=== PATIENT | male | born 1995 | race Caucasian/White ===

== ENCOUNTER 2020-11-22 12:43 | Emergency (ER) | payer OTHER, SELFPAY ==
[2020-11-22 12:50] VITALS: BP 117/59; PULSE 68; RESP 16; TEMP 37; O2SAT 97
--- NOTE | 2020-11-22 13:38 | ED.DENTAL ---
HPI - Dental/Oral General Chief complaint: Dental/Oral Stated complaint: Dental pain Time Seen by Provider: 11/22/20 13:32 Source: patient and RN notes reviewed Mode of arrival: ambulatory Limitations: no limitations History of Present Illness HPI Narrative: Patient presents today complaining of a 3-day history of left lower posterior tooth pain and possible abscess. States the tooth has been broken off for about a year. Does not have a dentist. Denies fever, nausea, vomiting, shortness of breath or difficulty swallowing. He has been taking ibuprofen without relief and currently rates pain 11/07. MD Complaint: tooth pain Related Data Allergies Allergy/AdvReac Type Severity Reaction Status Date / Time No Known Allergies Allergy Verified 11/22/20 13:12 Review of Systems Review of Systems: CONSTITUTIONAL: Denies body aches, fever, chills, or sweats. EYES: Denies visual changes, redness, or discharge. ENT: Denies rhinorrhea, congestion, sore throat, or otalgia.+ Tooth pain CARDIOVASCULAR: Denies chest pain, palpitations, or edema. RESPIRATORY: Denies cough or dyspnea. GASTROINTESTINAL: Denies abdominal pain, nausea, vomiting, or diarrhea. GENITOURINARY: Denies dysuria or hematuria. SKIN: Denies rash, itching, or wounds. MUSCULOSKELETAL: Denies back pain, joint pain, or myalgia. NEUROLOGIC: Denies headache, numbness, tingling, or weakness. PSYCH: Denies depression or anxiety. PMFSH Comments At time of signature, I have reviewed and agree with nursing past medical, surgical, social and family history unless otherwise noted. Please see nursing chart for further information. There is no relevant family history pertinent to the presenting complaint Exam Narrative: GENERAL: Well-appearing, well-nourished, and in no acute distress. HEAD: Normocephalic, atraumatic. EYES: EOMI. No redness or drainage. Conjunctivae normal. ENT: Mucous membranes pink and moist. Throat normal. Uvula midline. tooth #19 is brown in color and broken off at the gumline. Tooth #17 is also broken off at the gumline. NECK: Normal AROM. CHEST: No respiratory distress. EXTREMITIES: Normal range of motion. No edema. SKIN: Warm, dry, no rash. Capillary refill normal. Normal skin turgor. NEURO: No focal deficits. Alert and oriented x3. Gait steady. PSYCH: Normal affect. No signs of depression or anxiety. Course Vital Signs Vital signs: Vital Signs Temperature 98.6 F 11/22/20 12:50 Pulse Rate 68 11/22/20 12:50 Respiratory Rate 16 11/22/20 12:50 Blood Pressure 117/59 L 11/22/20 12:50 Pulse Oximetry 97 11/22/20 12:50 Temperature 98.6 F 11/22/20 12:50 Pulse Rate 68 11/22/20 12:50 Respiratory Rate 16 11/22/20 12:50 Blood Pressure 117/59 L 11/22/20 12:50 Pulse Oximetry 97 11/22/20 12:50 Reviewed MDM - Dental/Oral Differential Diagnosis Differential diagnosis: Likely gingival abscess, dental caries, toothache, dental abscess and fracture of tooth Critical Care Time Critical Care Time Critical Care Time: No Discharge Plan Discharge Clinical Impression: Dental abscess Patient Disposition: Home, Self-Care Condition: Stable Instructions: Antibiotic Form, Dental Abscess (ED) Additional Instructions: Take the amoxicillin as prescribed until gone. Continue ibuprofen for pain and inflammation. Call make an appointment with a dentist for further evaluation and treatment. Patient Language: Micronesian Prescriptions: New amoxicillin 875 mg tablet 875 mg PO Q12H 10 Days Qty: 20 RF: 0 Follow-up/Referrals: PHYSICIAN,TELETYPESETTER OPERATOR [Primary Care Provider] - Time of Disposition: 13:39
== END 2020-11-22 13:40 | disposition home or self-care (01) ==
PROVIDERS: Emergency Provider Nurse Practitioner
DX: K04.7 Periapical abscess without sinus (principal)
CPT/HCPCS: 99213; G0463

== ENCOUNTER 2022-04-01 10:07 | Emergency (ER) | payer OTHER, SELFPAY ==
--- NOTE | ~2022-04-01 | XR_ITS ---
Clinical Indication: Cough PA and lateral views of the chest: Comparison: None Findings: The lungs are clear, without evidence of focal consolidation or pleural effusion. Cardiome diastinal silhouette is within normal limits. Bones and soft tissues are unremarkable. Impression: Normal chest. Reviewed, dictated and finalized at [facility]. ICAL BIOSTATISTICS DIRECTOR Impression: Normal chest.
[2022-04-01 10:14] VITALS: BP 123/66; PULSE 68; RESP 16; TEMP 36.7; O2SAT 94
--- NOTE | 2022-04-01 10:38 | ED.GENADULT ---
HPI - General Adult General Chief complaint: Upper Respiratory Infection Stated complaint: Cough/Shortness of Breath Source: patient and RN notes reviewed History of Present Illness HPI narrative: 26-year-old male presents to urgent care with complaints of wheezing and shortness since last week. Patient states last week he had associated symptoms of congestion, fevers, body aches, vomiting times once and other URI symptoms. Patient states all of his symptoms have resolved except for the wheezing and shortness of breath. Patient does not offer COVID which was negative. Patient denies any chest pain. Patient denies any history of asthma. Patient has not been taking any medication for his symptoms. Some parts of this dictation were generated by voice recognition software and may contain typographical and/or grammatical inaccuracies. Related Data Allergies Allergy/AdvReac Type Severity Reaction Status Date / Time No Known Allergies Allergy Verified 04/01/22 10:30 Review of Systems Review of Systems: CONSTITUTIONAL: Denies fever, chills, or sweats. EYES: Denies visual changes, redness, or discharge. ENT: Denies otalgia and sore throat CARDIOVASCULAR: Denies chest pain, palpitations, or edema. RESPIRATORY: Reports wheezing and shortness of breath GASTROINTESTINAL: Denies abdominal pain, nausea, vomiting, or diarrhea. GENITOURINARY: Denies dysuria or hematuria. SKIN: Denies rash or itching. MUSCULOSKELETAL: Denies back pain, joint pain, or myalgia. NEUROLOGIC: Denies headache, numbness, or weakness. PMFSH Comments At the time of my signature, I reviewed and agree with the nursing past medical, surgical, social, and family history. There is no relevant family history pertinent to the patient complaint. Exam Narrative: GENERAL: This is a well-nourished, well-developed patient, in no apparent distress. HEAD: normocephalic, atraumatic. EYES: PERRL. Sclera clear/white. Vision is grossly intact. EARS: External ears normal, auditory canals clear and without drainage, TMs normal without perforation. Hearing grossly intact. NOSE: External nose normal with no obvious nasal discharge, nares without redness, no rhinorrhea. THROAT: Mucous membranes moist, posterior pharynx clear. NECK: Neck supple, non-tender without lymphadenopathy, masses or thyromegaly. CARDIOVASCULAR: Regular rate and rhythm without murmurs, gallops, or rubs. RESPIRATORY: Wheezing noted throughout on auscultation. Patient no acute distress. Speaking in full sentences. GASTROINTESTINAL: Abdomen soft, non-tender, nondistended. Bowel sounds are active. No hepato-splenomegaly, or palpable masses. No guarding. SKIN: warm, intact with no suspicious lesions or rash, good texture and turgor. NEURO: awake, alert, and oriented to person, place and time. There were no obvious focal neurologic abnormalities. Course Course Level of Care: Express Care Visit Vital Signs Vital signs: Vital Signs Temperature 98.1 F 04/01/22 10:14 Pulse Rate 68 04/01/22 10:14 Respiratory Rate 16 04/01/22 10:14 Blood Pressure 123/66 04/01/22 10:14 Pulse Oximetry 94 04/01/22 10:14 Oxygen Delivery Room Air 04/01/22 10:14 Temperature 98.1 F 04/01/22 10:14 Pulse Rate 68 04/01/22 10:14 Respiratory Rate 16 04/01/22 10:14 Blood Pressure 123/66 04/01/22 10:14 Pulse Oximetry 94 04/01/22 10:14 Oxygen Delivery Room Air 04/01/22 10:14 Reviewed Medical Decision Making MDM Narrative Medical decision making narrative: Do not smoke. Avoid smoke of any kind. May use a humidifier in the bedroom. Get plenty of fluids and rest. Take steroids as directed. Use your inhaler every 4-6 hours if needed. Follow up with your MD in 2-5 days. Go to the ER with any new or worsening symptoms. Pt's breath sounds improved after Rx Tx and meds. Pt states he is feeling much better at time of discharge. Differential Diagnosis Differential Diagnosis: RAD, asthma
[2022-04-01] MEDS: predniSONE 20 MG TABLET 60 MG PO (11:05)
[2022-04-01] MEDS: IPRATROPIUM BR 0.02% INH SOLN 0.5 MG/2.5 ML VIAL INHALATION (11:06)
[2022-04-01] MEDS: ALBUTEROL SULFATE NEB 2.5 MG/3 ML INH INHALATION (11:06)
== END 2022-04-01 11:57 | disposition home or self-care (01) ==
PROVIDERS: Emergency Provider Nurse Practitioner Family; PCP Emergency Medicine
DX: J45.909 Unspecified asthma, uncomplicated (principal)
CPT/HCPCS: 71046; 94640; 99213; G0463; J7512

== ENCOUNTER 2022-07-31 13:42 | Emergency (ER) | payer OTHER, SELFPAY ==
[2022-07-31 13:51] VITALS: BP 122/43; PULSE 78; RESP 16; TEMP 36.8; O2SAT 100
--- NOTE | 2022-07-31 13:52 | ED.GENADULT ---
HPI - General Adult General Chief complaint: Unspecified Stated complaint: sick last week / check to go to work Time Seen by Provider: 07/31/22 13:52 Source: patient Mode of arrival: ambulatory Limitations: no limitations History of Present Illness HPI narrative: 26-year-old male presents requesting a return to work note stating he missed work a week ago For GI symptoms, but symptoms have improved. He states he quit smoking about 3 weeks ago and has been feeling well. Denies abd pain, n/v/d/f/c. Related Data Allergies Allergy/AdvReac Type Severity Reaction Status Date / Time No Known Allergies Allergy Verified 04/05/22 07:55 Review of Systems Review of Systems: CONSTITUTIONAL: Denies body aches, fever, chills, or sweats. EYES: Denies visual changes, redness, or discharge. ENT: Denies rhinorrhea, congestion, sore throat, or otalgia. CARDIOVASCULAR: Denies chest pain, palpitations, or edema. RESPIRATORY: Denies cough or dyspnea. GASTROINTESTINAL: Denies abdominal pain, nausea, vomiting, or diarrhea. GENITOURINARY: Denies dysuria or hematuria. SKIN: Denies rash, itching, or wounds. MUSCULOSKELETAL: Denies back pain, joint pain, or myalgia. NEUROLOGIC: Denies headache, numbness, tingling, or weakness. All systems reviewed & are unremarkable except as noted in HPI and below PMFSH Past Medical History Medical History (Updated 07/31/22 @ 14:03 by Carissa Edmonds APRN) No pertinent past medical history Comments At time of signature, I have reviewed and agree with nursing past medical, surgical, social and family history unless otherwise noted. Please see nursing chart for further information. There is no relevant family history pertinent to the presenting complaint Exam Narrative: GENERAL: Well-appearing, well-nourished HEAD: Normocephalic, atraumatic. EYES: EOMI. No redness or drainage. Conjunctivae normal. ENT: Mucous membranes pink and moist. No rhinorrhea. NECK: Normal AROM. Supple. No lymphadenopathy. CHEST: No respiratory distress. Clear to auscultation. HEART: Regular rate and rhythm. No murmur appreciated. Normal peripheral pulses. ABDOMEN: Soft, nontender, nondistended, normal active bowel sounds. EXTREMITIES: Normal range of motion. No edema. SKIN: Warm, dry, no rash. Capillary refill normal. Normal skin turgor. NEURO: No focal deficits. Alert and oriented x3. Gait steady. PSYCH: Normal affect. Course Course Emergency Course: Patient is aware of diagnosis, understands and agrees to treatment plan. Anticipatory guidance given. Patient agrees to follow-up as directed and is aware of reasons to seek care at the emergency department. Portions of this record may have been created with voice recognition software Level of Care: Express Care Visit Medical Decision Making MDM Narrative Medical decision making narrative: Discussed physical exam findings. Pt is appropriate for outpt treatment and f/u. Differential Diagnosis Differential Diagnosis: wellness exam Vital Signs Vital Signs: reviewed Discharge Plan Discharge Clinical Impression: Encounter for wellness examination Patient Disposition: Home, Self-Care Condition: Stable Instructions: Normal Exam (ED) Additional Instructions: Follow up with primary care provider for routine screenings and labs Follow-up/Referrals: PHYSICIAN,CREATIVE SERVICES PRODUCER [Primary Care Provider] - Stand Alone Forms: Work/School Release IP Time of Disposition: 13:59
== END 2022-07-31 14:03 | disposition home or self-care (01) ==
PROVIDERS: Emergency Provider Nurse Practitioner Family
DX: Z02.79 Encounter for issue of other medical certificate (principal); Z87.891 Personal history of nicotine dependence
CPT/HCPCS: 99211; G0463

== ENCOUNTER 2022-09-01 14:02 | Emergency (ER) | payer OTHER, SELFPAY ==
[2022-09-01 14:08] VITALS: BP 116/47; PULSE 70; RESP 16; TEMP 36.4; O2SAT 98
--- NOTE | 2022-09-01 14:19 | ED.URI ---
HPI - URI/Sore Throat General Chief Complaint: Upper Respiratory Infection Stated Complaint: Chest Congestion Source: patient and RN notes reviewed History of Present Illness HPI Narrative: 26 yo M Presents to urgent care with complaints of worsening congestion and sinus pressure x 1 week. Pt states it started with a sore throat as well which did resolve on it's own. Pt states he believes he had a fever one night that he broke in the middle of the night. Denies any chest pain, SOB, ear pain, abdominal pain, or vomiting. Pt has taken Sudafed. Related Data Allergies Allergy/AdvReac Type Severity Reaction Status Date / Time No Known Allergies Allergy Verified 09/01/22 14:22 Review of Systems Review of Systems: Pertinent positives and pertinent negatives per HPI. [facility] Past Medical History Medical History (Updated 09/01/22 @ 14:22 by Kimberley Villa, MANAGER REQUIREMENTS) No pertinent past medical history Comments At the time of my signature, I reviewed and agree with the nursing past medical, surgical, social, and family history. There is no relevant family history pertinent to the patient complaint. Exam Narrative: GENERAL: This is a well-nourished, well-developed patient, in no apparent distress. HEAD: normocephalic, atraumatic. EYES: Sclera clear/white. Vision is grossly intact. EARS: External ears normal, auditory canals clear and without drainage, TMs normal without perforation. Hearing grossly intact. NOSE: External nose normal with no obvious nasal discharge, nares without redness, no rhinorrhea. THROAT: Mucous membranes moist, posterior pharynx clear. NECK: Neck supple, non-tender without lymphadenopathy, masses or thyromegaly. CARDIOVASCULAR: Regular rate and rhythm without murmurs, gallops, or rubs. RESPIRATORY: Clear to auscultation. Breath sounds equal bilaterally. No wheezes, rales, or rhonchi. GASTROINTESTINAL: Abdomen soft, non-tender, nondistended. Bowel sounds are active. No hepato-splenomegaly, or palpable masses. No guarding. SKIN: warm, intact with no suspicious lesions or rash, good texture and turgor. NEURO: awake, alert, and oriented to person, place and time. There were no obvious focal neurologic abnormalities. Course Course Level of Care: Express Care Visit Vital Signs Vital signs: Vital Signs Temperature 97.6 F 09/01/22 14:08 Pulse Rate 70 07/05/23 14:08 Respiratory Rate 16 09/01/22 14:08 Blood Pressure 116/47 L 09/01/22 14:08 Pulse Oximetry 98 09/01/22 14:08 Oxygen Delivery Room Air 09/01/22 14:08 Temperature 97.6 F 09/01/22 14:08 Pulse Rate 70 09/01/22 14:08 Respiratory Rate 16 09/01/22 14:08 Blood Pressure 116/47 L 09/01/22 14:08 Pulse Oximetry 98 09/01/22 14:08 Oxygen Delivery Room Air 09/01/22 14:08 Reviewed MDM - URI/Sore Throat MDM Narrative Medical decision making narrative: Go to the ER for any new or worsening symptoms. Avoid smoking/second-hand smoke. Continue to take Tylenol or Motrin for pain. Increase your Vitamin C intake. Use a humidifier or vaporizer at night. Take Medications as prescribed. Drink plenty of water. 8-10 glasses per day. Use flonase 2 times per day for 5 days then as needed Take mucinex 2 times per day and be sure to take with 8oz of water. Follow up with Primary provider if not getting better. Differential Diagnosis Differential diagnosis: Likely upper respiratory infection, sinusitis and viral infection Critical Care Time Critical Care Time Critical Care Time: No Discharge Plan Discharge Clinical Impression: Acute sinusitis Qualifiers: Sinusitis location: unspecified location Recurrence: not specified as recurrent Qualified Code(s): J01.90 - Acute sinusitis, unspecified Patient Disposition: Home, Self-Care Condition: Stable Instructions: Antibiotic Form, Sinusitis (ED) Additional Instructions: Go to the ER for any new or worsening symptoms. Avoid smoking/second-hand smoke. Co
== END 2022-09-01 14:25 | disposition home or self-care (01) ==
PROVIDERS: Emergency Provider Nurse Practitioner Family
DX: J01.90 Acute sinusitis, unspecified (principal)
CPT/HCPCS: 99213; G0463

== ENCOUNTER 2022-09-09 12:16 | Emergency (ER) | payer OTHER, SELFPAY ==
--- NOTE | 2022-09-09 12:21 | ED.URI ---
HPI - URI/Sore Throat General Chief Complaint: Upper Respiratory Infection Stated Complaint: Sore Throat Time Seen by Provider: 09/09/22 12:25 Source: patient Mode of arrival: ambulatory Limitations: no limitations History of Present Illness HPI Narrative: Orlando is a 26-year-old male patient presenting to the clinic today with complaints of cough, sore throat, runny nose, fever, body aches, and chills x 2 days. Was seen on September 01 and dx with sinusitis and he is currently taking Augmentin. MD elicited complaint: fever, cough, sore throat and nasal congestion Related Data Allergies Allergy/AdvReac Type Severity Reaction Status Date / Time No Known Allergies Allergy Verified 09/01/22 14:22 Review of Systems Review of Systems: Pertinent positives per HPI. Patient denies any fever, chills, rash, headache, visual changes, dizziness, cough, shortness of breath, chest pain, palpitations, nausea, vomiting, diarrhea, constipation, abdominal pain, or any urinary issues. PMFSH Past Medical History Medical History No pertinent past medical history Comments At the time of my signature, I reviewed and agree with the nursing past medical, surgical, social, and family history. There is no relevant family history pertinent to the patient complaint. Exam Narrative: General: Well-developed, well nourished, in no apparent distress Head: Normocephalic, atraumatic Eyes: Pupils equally round and reactive to light bilaterally, EOM intact, sclera and conjunctive clear, no discharge, lids normal Ears: TMs intact and clear, ear canals clear, no drainage, grossly hearing normal. Nose: Nares patent, clear discharge, no inflammation, no sinus tenderness. Mouth: Oral pharynx red with bilateral tonsillar swelling, without lesions or masses, good dentition, MMM. Neck: Supple, trachea midline, no enlargement of anterior or posterior cervical nodes, no thyroid masses or goiter palpable. Cardio: Regular rate and rhythm, s1 and s2 normal, no murmur appreciated. Resp: Clear to auscultation bilaterally, no rhonchi, rales, wheezing or rubs Course Course Emergency Course: Portions of this record may have been created with voice recognition software. Level of Care: Express Care Visit Vital Signs Vital signs: Vital signs reviewed MDM - URI/Sore Throat MDM Narrative Medical decision making narrative: At the time of visit patient is resting comfortably on the exam table. Becker testing was performed and was negative in the clinic today. Patient is currently on Augmentin and instructed to take finished the prescription. Will send in prescription for prednisone to help with the swelling and inflammation to his throat. He denies any known flu or COVID exposure. Supportive measures were discussed with the patient and he voiced understanding of discharge instructions agrees to treatment plan. Differential Diagnosis Differential diagnosis: Likely upper respiratory infection, otitis media, sinusitis, viral infection, bronchitis, influenza, pharyngitis and other (COVID) Discharge Plan Discharge Clinical Impression: Viral pharyngitis, Acute viral syndrome Patient Disposition: Home, Self-Care Condition: Stable Instructions: Antibiotic Form, Pharyngitis (ED), Viral Syndrome (ED) Additional Instructions: Becker testing was negative in the clinic today. Continue Augmentin Take prescription medications only as prescribed-prednisone Increase fluids and stay well hydrated Tylenol/motrin for pain/fever Flonase and OTC antihistamines as directed Vicks vapor rub to open sinuses Sinus rinses for congestion Cepacol spray, cough drops, throat lozenges, warm tea with honey/lemon, gargle salt water to soothe throat BRAT diet for diarrhea Clear liquids x 24 hours then advance as tolerated for nausea/vomiting Go to the ED if you develop a worsening in your condition- hi
[2022-09-09 12:22] VITALS: BP 131/69; PULSE 68; RESP 18; TEMP 36.5; O2SAT 99
[2022-09-09 12:33] LABS: Glucose Point of Care 76 mg/dl (65-105)
== END 2022-09-09 12:47 | disposition home or self-care (01) ==
PROVIDERS: Emergency Provider Nurse Practitioner Family
DX: B34.9 Viral infection, unspecified (principal)
CPT/HCPCS: 36416; 82948; 86308; 99213; G0463

== ENCOUNTER 2022-11-05 15:49 | Emergency (ER) | payer OTHER, SELFPAY ==
[2022-11-05 15:56] VITALS: BP 120/51; PULSE 71; RESP 20; TEMP 37.2; O2SAT 93
--- NOTE | 2022-11-05 16:35 | ED.URI ---
HPI - URI/Sore Throat General Chief Complaint: Upper Respiratory Infection Stated Complaint: Shortness of Breath Time Seen by Provider: 11/05/22 16:35 Source: patient, RN notes reviewed and old records reviewed Mode of arrival: ambulatory Limitations: no limitations History of Present Illness HPI Narrative: 27 year old male presents to [facility] reports that since October 26 patient reports that he has had cough with green drainage with wheezing with SOB. Patient reports that he does not have diagnosis of asthma but when he gets sick he has reactive airway and starts wheezing. He reports that he has taken DayQuil and NyQuil for his symptoms. Patient does admit to having some sinus congestion and drainage and feels stuffy MD elicited complaint: cough, rhinorrhea, nasal congestion and other (wheezing) Pertinent past history: other (reactive airway disease) Onset (ago): day(s) () Able to tolerate fluids by mouth: Yes Treatments prior to arrival: cold medicine Related Data Allergies Allergy/AdvReac Type Severity Reaction Status Date / Time No Known Allergies Allergy Verified 11/05/22 16:03 Review of Systems Review of Systems: CONSTITUTIONAL:Reports malaise, chills, sweats,low grader fever. EYES: Denies visual changes, redness, or discharge. ENT: Reports rhinorrhea, congestion, sinus pain, no otalgia and no sore throat. CARDIOVASCULAR: Denies chest pain, palpitations, or edema. RESPIRATORY: Reports cough.? Reports dyspnea with exertion GASTROINTESTINAL: Denies abdominal pain, nausea, vomiting, diarrhea SKIN: Denies rash or itching. MUSCULOSKELETAL: Denies myalgia. NEUROLOGIC: Denies headache. All systems reviewed & are unremarkable except as noted in HPI and below PMFSH Past Medical History Medical History No pertinent past medical history Social History Social History (Updated 11/06/22 @ 22:29 by Elsa Simental NP) Smoking status: Former smoker Alcohol intake: current Alcohol use details: social Substance use type: does not use Gender identity (if verbalized by the patient): Male Comments At time of signature, agree with nursing past medical, surgical, social and family history. There is no relevant family history pertinent to the presenting complaint Exam Narrative: GENERAL: Well-appearing, well-nourished, and in no acute distress. HEAD: Normocephalic EYES: PERRLA, conjunctivae clear ENT: Nares clear, turbinates edematous and erythematous, clear discharge. Mucous membranes moist. TM pearly reina with dull light reflex bilaterally; no tragal tenderness. Oropharynx erythematous without lesions. Tonsils not enlarged and without exudate, no drooling, no hoarseness, no trismus, uvula midline. NECK: Supple. No lymphadenopathy CHEST: Inspiratory and Expiratory wheezing on auscultation, breath sounds equal. wheezing noted, no rhonchi, rales, or stridor. No respiratory distress, speaks in full sentences.SAO2 93% on room air HEART: Regular rate and rhythm. No murmur heard. SKIN: Warm, dry, no rash. NEURO: Alert and oriented x3. PSYCH: Normal mood and affect Course Course Emergency Course: Patient is aware of diagnosis, understands and agrees to treatment plan.? Anticipatory guidance given.? Patient agrees to follow-up as directed and is aware of reasons to seek care at the emergency department. Portions of this record may have been created with voice recognition software Level of Care: Express Care Visit Vital Signs Vital signs: Vital Signs Temperature 37.2 C 11/05/22 15:56 Pulse Rate 71 11/05/22 15:56 Respiratory Rate 11/05/22 15:56 Blood Pressure 120/51 L 11/05/22 15:56 Pulse Oximetry 93 11/05/22 15:56 Oxygen Delivery Room Air 11/05/22 15:56 Temperature 37.2 C 11/05/22 15:56 Pulse Rate 71 11/05/22 15:56 Respiratory Rate 20 11/05/22 15:56 Blood Pressure 120/5
== END 2022-11-05 16:53 | disposition home or self-care (01) ==
PROVIDERS: Emergency Provider Registered Nurse
DX: J40 Bronchitis, not specified as acute or chronic (principal); J32.9 Chronic sinusitis, unspecified; J45.909 Unspecified asthma, uncomplicated; Z87.891 Personal history of nicotine dependence
CPT/HCPCS: 99213; G0463

== ENCOUNTER 2024-07-19 14:15 | Emergency (ER) | payer OTHER, SELFPAY ==
--- OUTSIDE RECORDS SUMMARY | 2024-07-19 14:18 | XMS_ITS | Clinical Summary ---
Author Organization [facility] Address [address] [place] [address] Phone Care Team Providers Care Compensation Director Name Role Phone Provider, Unknown Primary Care Provider Unavaila ble Allergies No known active allergies Medications No known medications Active Problems No known active problems Social History Tobacco Use Types Packs/Day Years Used Date Smoking Tobacco: Former Cigarettes Smokeless Tobacco: Never Tobacco Cessation:Counseling Given: Not Answered Alcohol Use Standard Drinks/Week Comments Never 0 (1 standard drink = 0.6 oz pur e alcohol) Sex and Gender Information Value Date Recorded Sex Assigned at Not on file Legal Sex Male 9:32 PM CDT Gender Identity Not on file Sexual Orientation Not on file Last Filed Vital Signs Vital Sign Reading Time Taken Comments Blood Pressure 143/112 03/04/2023 12:15 AM [employer] Pulse 53 03/04/2023 12:00 AM [employer] Temperature 36.2 C (97.2 F) 03/03/2023 11:30 PM [employer] Respiratory Rate 18 03/03/2023 11:30 PM [employer] Oxygen Saturation 100% 03/04/2023 12:00 AM [employer] Inhaled Oxygen Concentration - - Weight 79.4 kg (175 lb) 03/03/2023 11:30 PM [employer] Height 180.3 cm (5' 11 ) 03/03/2023 11:30 PM [employer] Body Mass Index 24.41 03/03/2023 11:30 PM [employer] Plan of Treatment Health Maintenance Due Date Last Done Comments Hepatitis C Virus (HCV) Screening 1993 Influenza Immunization (#1) 2023 12/06/2007 SARS-COV-2 Immunization ( season) 2023 06/25/2020, 05/30/2020 Respiratory Syncytial Virus (RSV) Immunization (Adult) (1 - 1-dose 75+ series) 2068 Hepatitis B Immunization Completed 995, 1993, 1993 DTaP/Tdap/Td Immunization Discontinued 2005, 06/06/1998, 03/21/1995, Additional history exists TdaP Immunization Completed 08/26/2005 Meningococcal Immunization (ACWY) Aged Out No longer eligible based on patient's age to complete this topic Pneumococcal Immunization Combined Aged Out No longer eligible based on patient's age to complete this topic Rotavirus Immunization Aged Out No lo nger eligible based on patient's age to complete this topic Insurance MEDICAID [place] Care Teams Compensation Director Relationship Specialty Start Date End Date Provider, Unknown UNKNOWN PCP - General 01/23/20
[2024-07-19 14:22] VITALS: BP 118/59; PULSE 55; RESP 20; TEMP 36.7; O2SAT 100
--- NOTE | 2024-07-19 14:44 | ED_ITS ---
HPI - URI/Sore Throat General Chief Complaint: Upper Respiratory Infection Stated Complaint: cough/chest tightness Time Seen by Provider: 07/19/24 14:32 Source: patient, RN notes reviewed and old records reviewed Mode of arrival: ambulatory Limitations: no limitations History of Present Illness HPI Narrative: 28 year old male who presents 2 week duration of productive cough of green phlegm,, sinus congestion, tightness of chest with cough,, fatigue, sinus pressure ad drainage. Patient reports that he has not had any known fevers, states that cough is worse at night, has been taking some Mucinex, and Ibuprofen for his symptoms.. Patient reports no shortness of breath or any wheezing. MD elicited complaint: cough, rhinorrhea, nasal congestion and sinus pain Onset (ago): week(s) (2) Consistency: constant Severity: moderate Description of mucous: green Able to tolerate fluids by mouth: Yes Treatments prior to arrival: ibuprofen and other (Mucinex) Related Data Allergies Allergy/AdvReac Type Severity Reaction Status Date / Time No Known Allergies Allergy Verified 07/19/24 14:25 Review of Systems Review of Systems: CONSTITUTIONAL: Reports malaise, no chills, sweats, or fever. EYES: Denies visual changes, redness, or discharge. ENT: Reports rhinorrhea, congestion, sinus pain, no otalgia and no sore throat. CARDIOVASCULAR: Denies chest pain, palpitations, or edema. RESPIRATORY: Reports productive cough.? Denies dyspnea. GASTROINTESTINAL: Denies abdominal pain, nausea, vomiting, diarrhea SKIN: Denies rash or itching. MUSCULOSKELETAL: Denies myalgia. NEUROLOGIC: some frontal headache. All systems reviewed & are unremarkable except as noted in HPI and below PMFSH Past Medical History Medical History Bronchitis Tonsillitis Abscess Social History Social History Smoking status: Former smoker Alcohol intake: former Alcohol use details: social Substance use type: does not use Last use: has been clean of drug use for 5 years Living arrangements: with family Gender identity (if verbalized by the patient): Male Comments At time of signature, agree with nursing past medical, surgical, social and family history. There is no relevant family history pertinent to the presenting complaint Exam Narrative: GENERAL: Well-appearing, well-nourished, and in no acute distress. HEAD: Normocephalic EYES: PERRLA, conjunctivae clear ENT: Nares clear, turbinates edematous and erythematous, clear discharge, sinus pressure and headache, Mucous membranes moist. TM pearly reina with dull light reflex bilaterally; no tragal tenderness. Oropharynx erythematous without lesions. Tonsils not enlarged and without exudate, no drooling, no hoarseness, no trismus, uvula midline.post nasal drainage NECK: Supple. No lymphadenopathy CHEST: Clear to auscultation, breath sounds equal. No wheezing, rhonchi, rales, or stridor. No respiratory distress, speaks in full sentences.productive cough, SAO2 100% on room air HEART: Regular rate and rhythm. No murmur heard. SKIN: Warm, dry, no rash. NEURO: Alert and oriented x3. PSYCH: Normal mood and affect Course Course Emergency Course: Patient is aware of diagnosis, understands and agrees to treatment plan.? Anticipatory guidance given.? Patient agrees to follow-up as directed and is aware of reasons to seek care at the emergency department. Portions of this record may have been created with voice recognition software Level of Care: Express Care Visit Vital Signs Vital signs: Vital Signs Temperature 36.7 C 07/19/24 14:22 Pulse Rate 55 L 07/19/24 14:22 Respiratory Rate 07/19/24 14:22 Blood Pressure 118/59 L 07/19/24 14:22 Pulse Oximetry 100 07/19/24 14:22 Oxygen Delivery Room Air 07/19/24 14:22 Temperature 36.7 C 07/19/24 14:22 Pulse Rate 55 L 07/19/24 14:22 Respiratory Rate 07/19/24 14:22 Blood Pressure 118/59 L 07/19/24 14:22 Pulse Oximetry 100 07/19/24 14:22 Oxygen Delivery Room Air 07/19/24 14:22 Reviewed MDM - URI/Sore Throat MDM Narrative Medical decision making narrative: Differential diagnosis considered: Branch virus, strep pharyngitis, allergic rhinitis, upper respiratory tract infection, sinusitis, rhinosinusitis, nasopharyngitis. viral pharyngitis, otitis media, otitis externa, pneumonia, bronchitis, viral cough syndrome, viral syndrome, and influenza.? Exam findings show no acute concerns or changes; patient is non-toxic appearing and is in no distress.? Patient is appropriate for outpatient treatment and follow-up. Differential Diagnosis Differential diagnosis: Likely upper respiratory infection, sinusitis, viral infection, bronchitis and other (acute cough) Lab Data Attestation: I reviewed the patient's lab results. Discharge Plan Discharge Clinical Impression: Sinusitis Qualifiers: Sinusitis location: pansinusitis Chronicity: acute Recurrence: non-recurrent Qualified Code(s): J01.40 - Acute pansinusitis, unspecified Patient Disposition: Home Condition: Stable Instructions: Antibiotic Form, Sinusitis (ED) Additional Instructions: Increase fluids especially juices and water [id number] cough and cold medicine of your choice for your symptoms Zyrtec Claritin or Anju daily heat to the face 20-30 minutes 4-6 times a day for pain Salt water gargles, throat lozenges or throat sprays as desired Antibiotic as directed--finished the medication Tylenol or ibuprofen for any fever pain If your symptoms persist, change or worsen significantly before you can contact your personal physician then please, without delay, go to the emergency department for further evaluation. Follow-up with PCP in 7-10 days or sooner if needed Mucinex daily for cough and congestion Patient Language: Turkmen Prescriptions: New amoxicillin-pot clavulanate 875-125 mg tablet 1 tablet PO Q12H Qty: 20 0RF No Action albuterol sulfate 90 mcg/actuation HFA aerosol inhaler 2 puff inhalation QID PRN (Reason: shortness of breath or wheezing) Qty: 6.7 1RF Follow-up/Referrals: PHYSICIAN,LOGISTICS PLANNING MANAGER [Primary Care Provider] - Time of Disposition: 14:55 Quality Tracy Coma Scale Eyes: Open Verbal: Oriented and Alert Motor: Follows Commands Tracy Coma Total Score: 15
== END 2024-07-19 14:59 | disposition home or self-care (01) ==
PROVIDERS: Emergency Provider Registered Nurse
DX: J01.40 Acute pansinusitis, unspecified (principal); Z87.891 Personal history of nicotine dependence
CPT/HCPCS: 99213; G0463

== ENCOUNTER 2024-11-04 11:33 | Emergency (ER) | payer OTHER, SELFPAY ==
--- OUTSIDE RECORDS SUMMARY | 2024-11-03 18:24 | XMS_ITS | Encounter Summary ---
Author Organization [facility] Address [address] [place] [id number] Care Team Providers Care Personal Financial Planner Name Role Phone No, Physician Primary Care Provider [phone] Reason for Visit * Reason Comments Arm Pain Back Pain Encounter Details Date Type Department Care Team (Late st Contact Info) Description 11/03/2024 6:24 PM CDT - 11/03/2024 6:25 PM CDT Emergency [facility] Emergency Department [address] [place] [id number] Acute right-sided thoracic back pain (Primary Dx) Discharge Disposition: Discharge to home or self care Social History Tobacco Use Types Packs/Day Years Used Date Smoking Tobacco: Every Day Cigarettes Smokeless Tobacco: Current Alcohol Use Standard Drinks/Week Comments Yes 0 (1 standard drink = 0.6 oz pur e alcohol) AUDIT-C Answer Date Recorded Frequency of Alcohol Consumption Monthly or less 12/07/2018 Average Number of Drinks Not on file 019 Frequency of Binge Drinking Not on file 11/28 Personal Safety Answer Date Recorded Have you ever been in or are you currently in a harmful physical or emotional relationship or is someone making you feel afraid or unsafe? 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 Gender Identity Not on file Sexual Orientation Not on file documented as of this encounter Last Filed Vital Signs Vital Sign Reading Time Taken Comments Blood Pressure 104/43 11/03/2024 6:20 PM CDT Pulse 57 11/03/2024 6:20 PM CDT Temperature 36.3 C (97.3 F) 11/03/2024 3:58 PM CDT Respiratory Rate 16 11/03/2024 6:20 PM CDT Oxygen Saturation 100% 11/03/2024 6:20 PM CDT Inhaled Oxygen Concentration - - Weight 77.1 kg (170 lb) 11/03/2024 3:58 PM CDT Height 180.3 cm (5' 11) 11/03/2024 3:58 PM CDT Body Mass Index 23.71 11/03/2024 3:58 PM CDT documented in this encounter Discharge Instructions * Discharge Instructions* Rose Cook, TECHNICAL SUPPORT ANALYST - 11/03/2024 6:13 PM CDT You were seen in the emergency department today for back pain. The CT scan of your cervical spine revealed that you do have a mild bulging disc at C5 and C6 and C6-C7. You may require additional evaluation with the MRI. Please follow up with Neurosurgery and your primary care provider. Please continue to take Tylenol or ibuprofen at home for any needed pain relief. You can also use lidocaine patch for any pain. Please return to the emergency department immediately if you have any numbness or tingling in your legs, loss of bowel or bladder, or any other concerning symptoms. * Attachments The following attachments cannot be sent through Care Everywhere. * Back Pain (Acute or Chronic) ([place]) documented in this encounter Medications at Time of Discharge azithromycin (ZITHROMAX) 250 mg tabletIndications :Pneumonia, Community Acquired Take 1 tablet by mouth daily for 4 days. 4 tablet 12/08/2018 cyclobenzaprine (FLEXERIL) 10 mg tablet Take 1 tablet (10 mg total) by mouth 3 (three) times a day as needed for muscle spasms for up to 30 doses 30 tablet 11/02/2024 ketorolac (TORADOL) 10 mg tablet Take 1 tablet (10 mg total) by mouth every 6 (six) hours as needed for pain 20 tablet 11/02/2024 documented as of this encounter Discharge Disposition Disposition Code Departure Means Destination Comment s Discharge to home or self care documented in this encounter ED Notes * Rose Cook, TECHNICAL SUPPORT ANALYST - 11/03/2024 4:02 PM CDT HPI Chief Complaint Patient presents with Arm Pain Back Pain 29-year-old male who presents to the emergency department for recurrent thoracic back pain. He was seen in the ED on Tuesday for similar back pain and underwent a CT scan, which was negative for acute findings. He was discharged with conservative management. Today he reports persistent thoracic back pain, now worsening and radiating down his right arm, new numbness in the right arm, described as a tingling and decreased sensation. Pain is aggravated by certain movements and positions. No trauma since last visit. He denies weakness or loss of motor function in the right arm or hand, distal neurological symptoms such as loss of sensation in the fingers or hand, bowel or bladder incontinence, urinary retention, or saddle anesthesia, fever, chills, or systemic symptoms. 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 All other systems reviewed and are negative. Physical Exam ED Triage Vitals Temp Pulse Resp BP SpO2 11/03/24 1558 11/03/24 1558 11/03/24 1558 11/03/24 1601 11/03/24 1558 36.3 ??C (97.3 ??F) 73 16 113/45 97 % Temp src Heart Rate Source Patient Position BP Location FiO2 (%) 11/03/24 1558 -- -- -- -- Temporal Height Height Method Weight Weight Method 11/03/24 1558 11/03/24 1558 11/03/24 1558 11/03/24 1558 1.803 m (5' 11) Estimated 77.1 kg (170 lb) Estimated Physical Exam Vitals and nursing note reviewed. Constitutional: General: He is not in acute distress. Appearance: Normal appearance. He is not ill-appearing, toxic-appearing or diaphoretic. HENT: Head: Normocephalic and atraumatic. Right Ear: External ear normal. Left Ear: External ear normal. Nose: Nose normal. Mouth/Throat: Mouth: Mucous membranes are moist. Eyes: Extraocular Movements: Extraocular movements intact. Conjunctiva/sclera: Conjunctivae normal. Pupils: Pupils are equal, round, and reactive to light. Cardiovascular: Rate and Rhythm: Normal rate and regular rhythm. Pulmonary: Effort: Pulmonary effort is normal. Breath sounds: Normal breath sounds. Abdominal: General: Abdomen is flat. Palpations: Abdomen is soft. Tenderness: There is no abdominal tenderness. Musculoskeletal: General: Normal range of motion. Cervical back: Normal range of motion and neck supple. No rigidity or tenderness. Skin: General: Skin is warm and dry. Capillary Refill: Capillary refill takes less than 2 seconds. Neurological: General: No focal deficit present. Mental Status: He is alert and oriented to person, place, and time. Mental status is at baseline. Cranial Nerves: No cranial nerve deficit. Sensory: No sensory deficit. Motor: No weakness. Coordination: Coordination normal. Gait: Gait normal. Deep Tendon Reflexes: Reflexes normal. Psychiatric: Mood and Affect: Mood normal. Behavior: Behavior normal. [facility] Medical Decision Making 29-year-old male with recurrent thoracic back pain and now new right arm radicular symptoms including numbness but no weakness or distal neuro deficits. He had a negative CT scan on Tuesday. Differential diagnosis: Thoracic disc herniation with radiculopathy Cervical radiculopathy presenting with a referred pain Paraspinal muscle strain or spasm less likely with the neuro symptoms Early spinal cord compression Plan: CT scan of cervical spine and pain management outpatient follow up Patient encouraged to follow up with Orthopedics. Strict return precautions given. This examination was transcribed using the [employer] E voice recognition system without human gambling counsellor. In an effort to expedite patient care, this report has not been adjusted for typographical, grammatical, and syntax by a trained biomedical engineering director. Close outpatient follow-up with a low threshold to return has been mandated , concerning symptoms have been emphasized in detail, and this patient expresses understanding Shared decision regarding disposition was made. Clinical Impression: Back pain Amount and/or Complexity of Data Reviewed Radiology: ordered. Decision-making details documented in ED Course. Risk Prescription drug management. ED Course as of 11/03/24 7036 Time: 09/06 1726 Value: CT Cervical Spine WO Contrast Comment: 1. No acute fracture within the cervical spine. 2. Mild loss of vertebral body height at C5, without cortical disruption, suggesting that this is a chronic process. Correlate with any point tenderness. 3. Reversal of the normal cervical lordosis centered at C5-6. 4. Mild disc space narrowing at C5-6. 5. Mild disc bulging suggested at C5-6 and C6-7, not well evaluated by CT. MRI can be utilized for further evaluation. By: Rose Cook NP Time: 11/03 1725 Comment: The patient remained stable throughout their ED stay. My clinical impression was discussedwith the patient/family. Radiology results were reviewed with them. I gave them the opportunity to ask questions, and addressed them as completely as possible given the information available at present. The therapeutic plan was discussed, advised to take medications as instructed, instructions weregiven and the importance of primary care follow up was stressed and encouraged. The patient/family voiced understanding of the plan, indications to return, and the need for follow up. By: Rose Cook, MEDARDO Final diagnoses: Acute right-sided thoracic back pain Rose Cook, MEDARDO 11/03/247 * Rhina Johnson RN - 11/03/2024 3:59 PM CDT Patient ambulatory to triage with complaint of back pain that radiates down R arm. States he was seen here Tuesday, states he was given a CT and muscle relaxer and it is not helping. TECHNICAL SUPPORT ANALYST at triage to assess. documented in this encounter Plan of Treatment Not on file documented as of this encounter Procedures Procedure Name Priority Date/Time Associated Diagnosis Comments CT CERVICAL SPINE WO CONTRAST ED 11/03/2024 4:30 PM CDT documented in this encounter Results * CT Cervical Spine WO Contrast (11/03/2024 4:30 PM CDT) Anatomical Region Laterality Modality Spine N/A Computed Tomogra phy 11/03/2024 5:14 PM CDT Narrative 11/03/2024 5:19 PM CDT EXAM DESCRIPTION: CT CERVICAL SPINE WO CONTRAST REASON FOR STUDY: pain Pain that radiates down right arm for 5 days TECHNIQUE: Axial images through the cervical spine with sagittal and coronal reformatted images. Automated exposure control was used as a dose optimization technique for this examination. COMPARISON: CT thoracic spine dated 11/02/2024. FINDINGS: ALIGNMENT: There is reversal of the normal cervical lordosis centered at the C5-6 level. VERTEBRAE: There is mild loss of vertebral body height at C5, without evidence of cortical disruption, suggesting that this is a chronic process. The remainder of the cervical vertebral body heights are maintained. The facets are normally aligned. There is no jumped or perched facet. DISCS: There is some mild disc space narrowing at C5-6. HARDWARE: None in the spine. INDIVIDUAL LEVELS: C1-C2: No significant osseous spinal stenosis. C2-C3: No significant osseous spinal stenosis or neural foraminal stenosis. C3-C4: No significant osseous spinal stenosis or neural foraminal stenosis. C4-C5: No significant osseous spinal stenosis or neural foraminal stenosis. C5-C6: No significant osseous spinal stenosis or neural foraminal stenosis. There is some mild broad-base bulging suggested at this level, not well evaluated by CT. C6-C7: No significant osseous spinal stenosis or neural foraminal stenosis. There is a component of disc bulging is noted, not well evaluated by CT.. C7-T1: No significant osseous spinal stenosis or neural foraminal stenosis. UPPER THORACIC: Incompletely imaged. No significant osseous spinal stenosis or osseous neural foraminal stenosis. Please see recent thoracic spine report. SKULL BASE: No significant mastoid effusion. LUNG APICES: Not included within the field of view. NECK SOFT TISSUES: No significant abnormality. OTHER: No other significant findings. IMPRESSION: 1. No acute fracture within the cervical spine. 2. Mild loss of vertebral body height at C5, without cortical disruption, suggesting that this is a chronic process. Correlate with any point tenderness. 3. Reversal of the normal cervical lordosis centered at C5-6. 4. Mild disc space narrowing at C5-6. 5. Mild disc bulging suggested at C5-6 and C6-7, not well evaluated by CT. MRI can be utilized for further evaluation. THIS IS AN ELECTRONICALLY VERIFIED FINAL REPORT 11/03/2024 5:19 PM - Electronically signed by Lydia Jules M.D. TW: MATTHEW Report ID: [id number] Reading Location: [id number] Procedure Note Lydia Jules MD - 11/03/2024 EXAM DESCRIPTION: CT CERVICAL SPINE WO CONTRAST REASON FOR STUDY: pain Pain that radiates down right arm for 5 days TECHNIQUE: Axial images through the cervical spine with sagittal andcoronal reformatted images. Automated exposure control was used as a doseoptimization technique for this examination. COMPARISON: CT thoracic spine dated 11/02/2024. FINDINGS: ALIGNMENT: There is reversal of the normal cervical lordosis centeredat the C5-6 level. VERTEBRAE: There is mild loss of vertebral body height at C5, without evidence of cortical disruption, suggesting that this is a chronicprocess. The remainder of the cervical vertebral body heights are maintained. The facets are normally aligned. There is no jumped or perched facet. DISCS: There is some mild disc space narrowing at C5-6. HARDWARE: None in the spine. INDIVIDUAL LEVELS: C1-C2: No significant osseous spinal stenosis. C2-C3: No significant osseous spinal stenosis or neural foraminalstenosis. C3-C4: No significant osseous spinal stenosis or neural foraminalstenosis. C4-C5: No significant osseous spinal stenosis or neural foraminalstenosis. C5-C6: No significant osseous spinal stenosis or neural foraminalstenosis. There is some mild broad-base bulging suggested at this level, not well evaluated by CT. C6-C7: No significant osseous spinal stenosis or neural foraminalstenosis. There is a component of disc bulging is noted, not well evaluated by CT.. C7-T1: No significant osseous spinal stenosis or neural foraminalstenosis. UPPER THORACIC: Incompletely imaged. No significant osseous spinalstenosis or osseous neural foraminal stenosis. Please see recent thoracic spine report. SKULL BASE: No significant mastoid effusion. LUNG APICES: Not included within the field of view. NECK SOFT TISSUES: No significant abnormality. OTHER: No other significant findings. IMPRESSION: 1. No acute fracture within the cervical spine. 2. Mild loss of vertebral body height at C5, without corticaldisruption, suggesting that this is a chronic process. Correlate with any point tenderness. 3. Reversal of the normal cervical lordosis centered at C5-6. 4. Mild disc space narrowing at C5-6. 5. Mild disc bulging suggested at C5-6 and C6-7, not well evaluated byCT. MRI can be utilized for further evaluation. THIS IS AN ELECTRONICALLY VERIFIED FINAL REPORT 11/03/2024 5:19 PM - Electronically signed by Lydia Jules M.D. TW: TW Report ID: [id number] Reading Location: [place] [address] Rose Cook NP IMG CT PROCEDURES Final Resul t documented in this encounter Visit Diagnoses Diagnosis Acute right-sided thoracic back pain- Primary documented in this encounter Administered Medications Inactive Administered Medications - up to 3 most recent administrations Medication Order MAR Action Action Date Dose Rate Site dexAMETHasone (DECADRON) injection solution 10 mg 10 mg, oral, Administer over 2 Minutes, Once, On 11/03/24 at 1622, For 1 dose Given 11/03/2024 4:30 PM CDT 10 mg HYDROcodone-acetaminophen (NORCO) 5-325 mg per tablet 1 tablet 1 tablet, oral, Once, On 11/03/24 at 1618, For 1 dose, Indications: PainIndications:Pain Given 11/03/2024 4:31 PM CDT 1 tablet documented in this encounter Active and Recently Administered Medications Times are shown in CDT. Scheduled Medication Order 11/01/2024 11/02/2024 11/03/2024 dexAMETHasone (DECADRON) injection solution 10 mg (COMPLETED) 10 mg, oral, Administer over 2 Minutes, Once, On 11/03/24 at 1622, For 1 dose 1630 (Given - Provid er: Dreanalee Adams, RN) HYDROcodone-acetaminophen (NORCO) 5-325 mg per tablet 1 tablet (COMPLETED) 1 tablet, oral, Once, On 11/03/24 at 1618, For 1 dose, Indications: Pain 1631 (Given - Provid er: Kamran Adams RN) documented in this encounter Care Teams Personal Financial Planner Relationship Specialty Start Date End Date No, Physician PCP - General 11/08/16 documented as of this encounter
--- OUTSIDE RECORDS SUMMARY | 2024-11-04 11:36 | XMS_ITS | Clinical Summary ---
Author Organization [facility] Address [address] [place] [address] Care Team Providers Care Diagnostic Sales Specialist Name Role Phone No, Physician Primary Care Provider [phone] Allergies No known active allergies Medications azithromycin (ZITHROMAX) 250 mg tabletIndicatio ns:Pneumonia, Community Acquired Take 1 tablet by mouth daily for 4 days. 4 tablet 9 Active albuterol HFA (PROVENTIL HFA,VENTOLIN HFA,PROAIR HFA) 90 mcg/actuation inhalerIndicati ons:Bronchospas m Prevention Inhale 2 puffs every 4 (four) hours as needed for wheezing 1 Inhaler 9 Active ketorolac (TORADOL) 10 mg tablet Take 1 tablet (10 mg total) by mouth every 6 (six) hours as needed for pain 20 tablet 5 Active cyclobenzaprine (FLEXERIL) 10 mg tablet Take 1 tablet (10 mg total) by mouth 3 (three) times a day as needed for muscle spasms for up to 30 doses 30 tablet 5 Active baclofen (LIORESAL) 10 mg tablet Take 1 tablet (10 mg total) by mouth nightly as needed for muscle spasms. 15 tablet 8 11/03/19 25 Discontinu ed(Alterna te therapy) ibuprofen (ADVIL,MOTRIN) 800 mg tablet Take 1 tablet (800 mg total) by mouth every 8 (eight) hours as needed for pain 20 tablet 4 11/03/19 25 Discontinu ed(Alterna te therapy) naproxen (NAPROSYN) 500 mg tablet Take 1 tablet (500 mg total) by mouth 2 (two) times a day with meals 20 tablet 4 11/03/19 25 Discontinu ed(Alterna te therapy) Active Problems No known active problems Encounters Date Type Department Care Team Description 11/03/2024 6:24 PM CDT - 11/03/2024 6:25 PM CDT Emergency [facility] Emergency Department [address] [place] [address] Acute right-sided thoracic back pain (Primary Dx) Discharge Disposition: Discharge to home or self care 11/02/2024 1:34 AM CDT - 11/02/2024 1:35 AM CDT Emergency [facility] Emergency Department [address] [place] [address] Acute right-sided thoracic back pain (Primary Dx); Upper respiratory tract infection, unspecified type Discharge Disposition: Discharge to home or self care from Last 3 Months Medical History Medical History Date Comments Drug abuse Pneumonia Social History Tobacco Use Types Packs/Day Years [...] on file 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 Gender Identity Not on file Sexual Orientation Not on file Obstetrics History Last Filed Vital Signs Vital Sign Reading [...] Mass Index 23.71 11/03/2024 3:58 PM CDT Plan of Treatment Health Maintenance Due Date Last Done Comments Depression Screening 1993 Hepatitis C Screening 1993 Varicella Vaccines (1 of 2 - 13+ 2-dose series) 2006 Regular Well Visit/Exam 18-64 10/27/2011 Pneumococcal vaccine <65 (1 of 2 - PCV) 2012 DTaP/Tdap/Td Vaccine (7 - Td or Tdap) 08/27/2015 08/26/2005, 06/06/1998, 03/21/1995, Additional history exists HPV Vaccines (1 - 3-dose SCD M series) 2020 Influenza Vaccine (#1) 2024 12/06/2007 Hepatitis B Screening Completed 08/27/1994 , 1993, 1993 Procedures Procedure Name Priority Date/Time Associated Diagnosis Comments CT CERVICAL SPINE WO CONTRAST ED 11/03/2024 4:[address] THORACIC SPINE WO CONTRAST ED 11/02/2024 12:36 AM CDT INFLUENZA A/B, RSV, AND COVID-19 PCR STAT 11/02/2024 12:00 AM CDT from Last 3 Months Results * CT Cervical Spine WO Contrast [...] Lydia Jules M.D. TW: MATTHEW Report ID: [id number] Reading Location: [id number] Procedure Note Lydia Jules MD - 11/03/2024 [...] 5:19 PM - Electronically signed by Lydia GarciaD. TW: MATTHEW Report ID: [id number] Reading Location: [id number] Rose Cook THRASHER FEEDER IMG CT PROCEDURES Final Resul t * CT Thoracic Spine WO Contrast (11/02/2024 12:36 AM CDT) Anatomical Region Laterality Modality Spine N/A Computed Tomogra phy 11/02/2024 12:5 0 AM CDT Narrative 11/02/2024 12:53 AM CDT EXAM DESCRIPTION: CT THORACIC SPINE WO CONTRAST REASON FOR STUDY: back pain C/o upper back pain from the right shoulder blade to mid back x 4 days. No prior surgery TECHNIQUE: Axial images acquired through the thoracic spine without intravenous contrast. Images reviewed with lung, soft tissue and bone windows. Reconstructed coronal and sagittal MPR images reviewed. Images stored on PACS. Automated exposure control was used as a dose optimization technique for this examination. COMPARISON: None FINDINGS: ALIGNMENT: Normal. VERTEBRAE: No fracture. Vertebral body height well-maintained. DISC HEIGHT: Well-maintained. HARDWARE: None in the spine. THORACIC DISCS T1-T12: No significant osseous spinal stenosis or neuroforaminal stenosis. SOFT TISSUES: No soft tissue masses. LOWER CERVICAL: Incompletely imaged. No significant osseous spinal stenosis or osseous foraminal stenosis. UPPER LUMBAR: Incompletely imaged. No significant osseous spinal or osseous neuroforaminal stenosis. OTHER: No other significant abnormality. IMPRESSION: Normal thoracic spine CT. THIS IS AN ELECTRONICALLY VERIFIED FINAL REPORT 11/02/2024 12:53 AM - Electronically signed by Cas Ortiz M.D. KT: DINO Report ID: [id number] Reading Location: [id number] Procedure Note Cas Ortiz MD - 11/02/2024 EXAM DESCRIPTION: CT THORACIC SPINE WO CONTRAST REASON FOR STUDY: back pain C/o upper back pain from the right shoulder blade to mid back x 4 days.No prior surgery TECHNIQUE: Axial images acquired through the thoracic spine without intravenous contrast. Images reviewed with lung, soft tissue and bone windows. Reconstructed coronal and sagittal MPR images reviewed. Images stored on PACS. Automated exposure control was used as a dose optimization technique for this examination. COMPARISON: None FINDINGS: ALIGNMENT: Normal. VERTEBRAE: No fracture. Vertebral body height well-maintained. DISC HEIGHT: Well-maintained. HARDWARE: None in the spine. THORACIC DISCS T1-T12: No significant osseous spinal stenosis or neuroforaminal stenosis. SOFT TISSUES: No soft tissue masses. LOWER CERVICAL: Incompletely imaged. No significant osseous spinalstenosis or osseous foraminal stenosis. UPPER LUMBAR: Incompletely imaged. No significant osseous spinal orosseous neuroforaminal stenosis. OTHER: No other significant abnormality. IMPRESSION: Normal thoracic spine CT. THIS IS AN ELECTRONICALLY VERIFIED FINAL REPORT 11/02/2024 12:53 AM - Electronically signed by Cas Ortiz M.D. KT: DINO Report ID: [id number] Reading Location: [place] [id number] Oliver Navarrete NP IMG CT PROCEDURES Final Result * Influenza A/B, RSV, and COVID-19 PCR Nasopharyngeal (11/02/2024 12:00 AM CDT) COVID-19 RNA Negative Negative Influenza A RNA Negative Negative [facility] ([place]) Influenza B RNA Negative Negative [facility] ([place]ESSICA) RSV RNA Negative Negative [facility] (JESSICA) Comment: Interpretive data: Testing performed by [facility]. This test is performed using the [employer] Xpert Xpress CoV-2/Flu/RSV plus assay. This is a multiplex, real- time reverse transcriptase PCR assay intended for the qualitative detection of nucleic acid from SARS-CoV-2, influenza A, influenza B, and respiratory syncytial virus. This assay has been cleared by the [place] Food and Drug administration. The performance characteristics have been verified by the [facility]. Results must be considered in the clinical context, and a negative result does not rule out infection. Interpretive Data last revised 2023 Nasopharyngeal 11/02/2024 11/02/2024 12:04 AM CDT Narrative [facility] ([place]ESSICA) - 11/02/2024 12:42 AM CDT Is the Patient experiencing symptoms consistent with COVID?->Yes Oliver Navarrete NP LAB MICROBIOLOGY - GENERAL ORDER RAMANDEEP Final Result [facility]IN ([place]) [address] [facility] [place] [address] from Last 3 Months Insurance [facility] Care Teams Diagnostic Sales Specialist Relationship Specialty Start Date End Date No, Physician PCP - General 11/08/16
[2024-11-04 11:40] VITALS: BP 119/58; PULSE 76; RESP 20; TEMP 37.3; O2SAT 100
--- NOTE | 2024-11-04 11:57 | ED.URI ---
HPI - URI/Sore Throat General Chief Complaint: Upper Respiratory Infection Stated Complaint: poss sinus infection Time Seen by Provider: 11/04/24 11:45 Source: patient and RN notes reviewed Mode of arrival: ambulatory Limitations: no limitations History of Present Illness HPI Narrative: 29-year-old male presents Express Care complaining of upper respiratory symptoms for 3 days. Patient reports sinus congestion, mucopurulent nasal drainage, cough, and fevers. Patient reports all sinus congestion he feels right-side of his face. Patient denies any earache, nausea, vomiting, chest pain, shortness of breath, or any other symptoms. Patient has not tried any gwoo-fps-eupware to help with symptoms. Patient has a history of sinusitis. Related Data Home Medications ?Medication ?Instructions ?Recorded ?Confirmed ?Last Taken ?Type cyclobenzaprine 10 mg tablet mg 11/04/24 Unknown History ketorolac 10 mg tablet mg 11/04/24 Unknown History Allergies Allergy/AdvReac Type Severity Reaction Status Date / Time No Known Allergies Allergy Verified 07/19/24 14:25 Review of Systems Review of Systems: CONSTITUTIONAL: Positive for tactile fevers. Negative for chills, body aches, or sweats. EYES: Denies visual changes, redness, or discharge. ENT: Negative for rhinorrhea, sore throat, or otalgia. Positive for congestion and sinus pressure. CARDIOVASCULAR: Denies chest pain, palpitations, or edema. RESPIRATORY: Positive for cough. Negative for dyspnea. GASTROINTESTINAL: Denies abdominal pain, nausea, vomiting, or diarrhea. GENITOURINARY: Denies dysuria or hematuria. SKIN: Denies rash or itching. MUSCULOSKELETAL: Denies back pain, joint pain, or myalgia. NEUROLOGIC: Denies headache, numbness, or weakness. PSYCHIATRIC: Denies anxiety or depression. All other systems reviewed are negative, except as documented in HPI. 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 There is no relevant family history pertinent to the patient complaint. Exam Narrative: GENERAL: This is a well-nourished, well-developed adult, in no apparent distress. They are non ill-appearing, nontoxic appearing. HEAD: normocephalic, atraumatic. EYES: Sclera clear/white. Vision is grossly intact. Conjunctiva normal bilaterally. Extraocular movements intact. EARS: External ears normal, auditory canals clear and without drainage, TMs without erythema or perforation. Hearing grossly intact. NOSE: External nose normal with no obvious nasal discharge, right nasal turbinate erythematous with exudate present, the nasal turbinate without redness or swelling, no rhinorrhea. Right maxillary and frontal sinus tenderness to palpation. THROAT: Mucous membranes moist, posterior pharynx boggy without redness, without exudate. Uvula is midline. Postnasal drip present. NECK: Neck supple, non-tender without lymphadenopathy, masses or thyromegaly. CARDIOVASCULAR: Regular rate and rhythm without murmurs, gallops, or rubs. RESPIRATORY: Clear to auscultation. Breath sounds equal bilaterally. No wheezes, rales, or rhonchi. SKIN: warm, Dry, intact with no suspicious lesions or rash, good texture and turgor. NEURO: awake, alert, and oriented to person, place and time. There were no obvious focal neurologic abnormalities. EXTREMITIES: No joint tenderness, effusion, or edema noted. BACK: Nontender without deformity. Course Course Emergency Course: Portions of this record may have been created with voice recognition software Level of Care: Express Care Visit Vital Signs Vital signs: Vital Signs Temperature 99.1 F 11/04/24 11:40 Pulse Rate 76 11/04/24 11:40 Respiratory Rate 20 11/04/24 11:40 Blood Pressure 119/58 L 11/04/24 11:40 Pulse Oximetry 100 11/04/24 11:40 Oxygen Delivery Room Air 11/04/24 11:40 Temperature 99.1 F 11/04/24 11:40 Pulse Rate 76 11/04/24 11:40 Respiratory Rate 20 11/04/24 11:40 Blood Pressure 119/58 L 11/04/24 11:40 Pulse Oximetry 100 11/04/24 11:40 Oxygen Delivery Room Air 11/04/24 11:40 MDM - URI/Sore Throat MDM Narrative Medical decision making narrative: There is a high suspicion patient has a bacterial sinusitis. Patient is unilateral maxillary and frontal sinus tenderness, pain, swelling with mucopurulent drainage along with fevers. Through shared decision making discussed with patient to wait antibiotic treatment or go ahead and start and he would like to go ahead and start antibiotic therapy. Prescription of Augmentin sent to pharmacy. Discussed physical exam findings. Advised supportive measures and signs/symptoms to go to the ER. Pt is appropriate for outpt treatment and f/u. Differential Diagnosis Differential diagnosis: Likely upper respiratory infection, sinusitis and viral infection Discharge Plan Discharge Clinical Impression: Sinusitis Qualifiers: Sinusitis location: maxillary Chronicity: acute Recurrence: non-recurrent Qualified Code(s): J01.00 - Acute maxillary sinusitis, unspecified Patient Disposition: Home Condition: Stable Instructions: Antibiotic Form, Sinusitis (ED) Additional Instructions: Take the antibiotics as directed and complete the course even if you start to feel better. You may use a Neti pot saline rinse 3 times a day with lukewarm distilled water Continue to take Tylenol or Motrin for pain. Follow instructions on the bottle. Use a humidifier or vaporizer at night. Drink plenty of water. 8-10 glasses per day. Use flonase 2 times per day for 5 days then as needed Take mucinex 2 times per day and be sure to take with 8oz of water. 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
== END 2024-11-04 12:01 | disposition home or self-care (01) ==
DX: J01.00 Acute maxillary sinusitis, unspecified (principal); Z87.891 Personal history of nicotine dependence
CPT/HCPCS: 99213; G0463